=== PATIENT | female | born 1955 | race Two or more races ===

== ENCOUNTER 2024-08-15 09:54 | Inpatient (IN) | payer MEDICARE, OTHER ==
[~2024-08-15] VITALS: Ht 154.9 cm; Wt 90.7 kg
[2024-08-15] MEDS ORDERED: METOCLOPRAMIDE HCL 10 MG/2 ML VIAL ONE ×2 (11:06→11:30)
[2024-08-15] MEDS ORDERED: diphenhydrAMINE HCL 50 MG/ML VIAL ONE ×2 (11:06→11:30)
[2024-08-15] MEDS ORDERED: ACETAMINOPHEN 325 MG TABLET ONE ×2 (11:06→11:31)
[2024-08-15] MEDS: ACETAMINOPHEN 325 MG TABLET PO ONE (11:40)
[2024-08-15] MEDS: diphenhydrAMINE HCL 50 MG/ML VIAL IV ONE (11:45)
[2024-08-15] MEDS: METOCLOPRAMIDE HCL 10 MG/2 ML VIAL IV ONE (11:48)
[2024-08-15 12:06] LABS: CALCIUM, SERUM 8.3 mg/dL (8.5-10.1); CREATININE 1.8 mg/dL (0.6-1.3); POTASSIUM 4.1 mmol/L (3.5-5.1)
[2024-08-15 12:09] LABS: INR 0.96 (0.91-1.10); PARTIAL THROMBOPLASTIN TIME 26.1 SEC (24.3-34.3); PROTHROMBIN TIME 10.2 SECS (9.2-11.1)
[2024-08-15 12:12] LABS: ALBUMIN 3.1 g/dL (3.4-5.0); BILIRUBIN,DIRECT 0.1 mg/dL (0.0-0.2); BILIRUBIN,TOTAL 0.2 mg/dL (0.2-1.0); TOTAL PROTEIN, SERUM 7.2 g/dL (6.4-8.2)
[2024-08-15 12:20] LABS: BASOPHILS # (AUTO) 0.1 K/uL (0.0-0.2); BASOPHILS % (AUTO) 0.3 % (0.0-2.0); EOSINOPHILS % (AUTO) 0.2 % (0.0-6.0); HEMATOCRIT 34 % (33-45); HEMOGLOBIN 10.9 g/dL (11.5-14.8); LYMPHOCYTES # (AUTO) 0.9 K/uL (0.8-4.8); LYMPHOCYTES % (AUTO) 4.5 % (20.0-44.0); MEAN CORPUSCULAR HEMOGLOBIN 25 PG (26.0-33.0); MEAN CORPUSCULAR HGB CONC 32 g/dl (31.0-36.0); MEAN CORPUSCULAR VOLUME 78 fL (82-100); MONOCYTES # (AUTO) 0.9 K/uL (0.1-1.30); MONOCYTES % (AUTO) 4.7 % (2.0-12.0); NEUTROPHILS # (AUTO) 17.2 K/uL (1.8-8.9); NEUTROPHILS % (AUTO) 90.3 % (43.0-81.0); PLATELET COUNT (AUTO) 370 K/uL (150-450); RED BLOOD CELL COUNT(AUTO) 4.34 MIL/uL (4.0-5.2); RED CELL DISTRIBUTION WIDTH 16.8 % (11.5-15.0); WHITE BLOOD COUNT (AUTO) 19.1 K/uL (4.3-11.0)
[2024-08-15 12:29] LABS: LACTIC ACID 3.3 mmol/L (0.4-2.0)
[2024-08-15] MEDS: IV NS 0.9% 1,000 ML BAG IV ONE (13:05)
[2024-08-15 13:57] LABS: APPEARANCE,URINE CLEAR (CLEAR); BILIRUBIN,URINE NEGATIVE (NEGATIVE); BLOOD, URINE NEGATIVE Ery/uL (NEGATIVE); COLOR,URINE YELLOW (YELLOW); KETONES,URINE NEGATIVE (NEGATIVE); LEUKOCYTE ESTERASE ,URINE NEGATIVE (NEGATIVE); NITRITE, URINE NEGATIVE (NEGATIVE); PROTEIN,URINE NEGATIVE (NEGATIVE); UGLUCOSE 3+ mg/dL (NEGATIVE); UROBILINOGEN,URINE 0.2 EU/dL (0.2)
[2024-08-15] MEDS: CEFTRIAXONE 2 G in IV D5W 50 ML IV ONE (14:00)
[2024-08-15 14:04] LABS: ADD URINE CULTURE NO; BACTERIA,URINE Few /HPF (None Seen); RBC,URINE 0-2 /HPF (0-2); SQUAMOUS EPITHELIAL CELL,UR Moderate /HPF (None Seen); WBC,URINE 0-2 /HPF (0-3)
[2024-08-15] MEDS ORDERED: PANT40TA49 PO (14:16)
[2024-08-15] MEDS ORDERED: METF-442 PO (14:16)
[2024-08-15] MEDS ORDERED: ASPI-1420 PO (14:16)
[2024-08-15] MEDS ORDERED: LOSA100T31 PO (14:16)
[2024-08-15] MEDS ORDERED: LINA5TAB PO (14:16)
[2024-08-15] MEDS ORDERED: DAPA10TA PO (14:16)
[2024-08-15] MEDS ORDERED: METO-358 PO (14:16)
[2024-08-15] MEDS ORDERED: FURO20TA4 PO (14:16)
[2024-08-15] MEDS ORDERED: LEVO137T2 PO (14:16)
[2024-08-15] MEDS ORDERED: HYDR100T27 PO (14:16)
[2024-08-15] MEDS ORDERED: IBUP-1957 PO (14:16)
[2024-08-15] MEDS ORDERED: MONT10TA22 PO (14:16)
[2024-08-15] MEDS ORDERED: GABA300C PO (14:16)
[2024-08-15] MEDS: AZITHROMYCIN 500 MG in IV D5W 250 ML IV ONE (15:30)
[2024-08-15 16:00] VITALS: BP_SYST 103; BP_SYST 135; BP_DIAS 49; BP_DIAS 67; TEMP 98.2; TEMP 98.8; O2SAT 95; O2SAT 99
[2024-08-15 16:08] VITALS: BP 103/49; TEMP 98.8; O2SAT 95
[2024-08-15] MEDS: IV NS 0.9% 1,000 ML BAG IV PRN (17:07)
[2024-08-15] MEDS ORDERED: IV NS 0.9% 1,000 ML IV PRN (18:00)
[2024-08-15] MEDS ORDERED: ONDANSETRON HCL/PF 4 MG/2 ML VIAL IVP PRN (18:00)
[2024-08-15] MEDS ORDERED: DEXTROSE 50%-WATER 50 ML DISP.SYRIN IV PRN (18:30)
[2024-08-15] MEDS ORDERED: *INSULIN REGULAR(HUMULIN R)HUM 100 UNIT/ML VIAL SQ PRN (18:30)
[2024-08-15] MEDS: METOPROLOL SUCCINATE 50 MG TAB.SR.24H PO SCH (18:30)
[2024-08-15] MEDS: hydrALAZINE HCL 50 MG TABLET PO SCH (18:30)
[2024-08-15] MEDS: GABAPENTIN 300 MG CAPSULE PO SCH (18:51)
[2024-08-15] MEDS: PANTOPRAZOLE 40 MG TABLET.DR PO SCH (18:51)
[2024-08-15 20:00] VITALS: BP 102/64; TEMP 98.4; O2SAT 99
[2024-08-15] MEDS: HEPARIN SODIUM, PORCINE 5000 UNITS/1 ML VIAL SQ SCH (20:13)
[2024-08-15] MEDS: ACETAMINOPHEN 325 MG TABLET PO PRN (20:27)
[2024-08-15 20:38] VITALS: BP 102/64; TEMP 98.4; O2SAT 99
[2024-08-15] MEDS: INSULIN REGULAR, HUMAN 100 UNIT/ML 3 ML VIAL SQ PRN (21:05)
[2024-08-15] MEDS: BLOOD SUGAR DIAGNOSTIC 1 EACH STRIP VI SCH (21:06)
[2024-08-15] MEDS: MONTELUKAST SODIUM (10MG) 10 MG TABLET PO SCH (23:11)
[2024-08-16] VITALS (7 sets, daily range): BP systolic 89–140; BP diastolic 38–65; TEMP 98.2–98.4; O2SAT 92–100
[2024-08-16 06:20] LABS: BASOPHILS % (AUTO) 0.3 % (0.0-2.0); EOSINOPHILS # (AUTO) 0.2 K/uL (0.0-0.7); EOSINOPHILS % (AUTO) 1.4 % (0.0-6.0); HEMATOCRIT 27 % (33-45); HEMOGLOBIN 8.8 g/dL (11.5-14.8); LYMPHOCYTES # (AUTO) 1.8 K/uL (0.8-4.8); LYMPHOCYTES % (AUTO) 15.1 % (20.0-44.0); MEAN CORPUSCULAR HEMOGLOBIN 25 PG (26.0-33.0); MEAN CORPUSCULAR HGB CONC 33 g/dl (31.0-36.0); MEAN CORPUSCULAR VOLUME 77 fL (82-100); MONOCYTES # (AUTO) 0.7 K/uL (0.1-1.30); MONOCYTES % (AUTO) 5.9 % (2.0-12.0); NEUTROPHILS # (AUTO) 9.1 K/uL (1.8-8.9); NEUTROPHILS % (AUTO) 77.3 % (43.0-81.0); PLATELET COUNT (AUTO) 292 K/uL (150-450); RED BLOOD CELL COUNT(AUTO) 3.48 MIL/uL (4.0-5.2); RED CELL DISTRIBUTION WIDTH 16.7 % (11.5-15.0); WHITE BLOOD COUNT (AUTO) 11.8 K/uL (4.3-11.0)
[2024-08-16 06:48] LABS: CALCIUM, SERUM 7.7 mg/dL (8.5-10.1); CREATININE 1.4 mg/dL (0.6-1.3); MAGNESIUM 2.1 mg/dL (1.8-2.4); PHOSPHORUS 3.5 mg/dL (2.5-4.9)
[2024-08-16 07:04] LABS: POTASSIUM 3.4 mmol/L (3.5-5.1)
[2024-08-16] MEDS: LEVOTHYROXINE SODIUM 137 MCG TABLET PO SCH (08:34)
[2024-08-16] MEDS: DAPAGLIFLOZIN PROPANEDIOL 5 MG TABLET PO SCH (08:34)
[2024-08-16] MEDS: LINAGLIPTIN 5 MG TABLET PO SCH (08:34)
[2024-08-16] MEDS: ASPIRIN EC 81 MG TABLET.DR PO SCH (08:34)
[2024-08-16] MEDS: LOSARTAN POTASSIUM 50 MG TABLET PO SCH (08:38)
[2024-08-16] MEDS: CEFTRIAXONE 1 G in IV D5W 50 ML IV SCH (11:36)
[2024-08-16] MEDS: POTASSIUM CHLORIDE 20 MEQ TAB.PRT.SR PO SCH (11:36)
[2024-08-16] MEDS: AZITHROMYCIN 500 MG in IV D5W 250 ML IV SCH (15:28)
[2024-08-16 22:59] LABS: CREATININE, URINE 33.9 MG/DL (30.0-125.0); URINE TOTAL PROTEIN 11.3 mg/dL (0-11.9)
[2024-08-17] VITALS: BP 133/77; TEMP 98.6; O2SAT 96
[2024-08-17 04:00] VITALS: BP 136/51; TEMP 98.5; O2SAT 96
[2024-08-17 04:16] VITALS: BP 111/48; TEMP 98.4; O2SAT 95
[2024-08-17 04:17] VITALS: BP 136/51; TEMP 98.5; O2SAT 96
[2024-08-17 07:00] VITALS: BP 108/46; TEMP 97.9; O2SAT 97
[2024-08-17 07:01] LABS: BASOPHILS % (AUTO) 0.4 % (0.0-2.0); EOSINOPHILS # (AUTO) 0.2 K/uL (0.0-0.7); EOSINOPHILS % (AUTO) 2.4 % (0.0-6.0); HEMATOCRIT 29 % (33-45); HEMOGLOBIN 9.7 g/dL (11.5-14.8); LYMPHOCYTES # (AUTO) 1.5 K/uL (0.8-4.8); LYMPHOCYTES % (AUTO) 14.4 % (20.0-44.0); MEAN CORPUSCULAR HEMOGLOBIN 26 PG (26.0-33.0); MEAN CORPUSCULAR HGB CONC 33 g/dl (31.0-36.0); MEAN CORPUSCULAR VOLUME 78 fL (82-100); MONOCYTES # (AUTO) 0.7 K/uL (0.1-1.30); MONOCYTES % (AUTO) 6.4 % (2.0-12.0); NEUTROPHILS % (AUTO) 76.4 % (43.0-81.0); PLATELET COUNT (AUTO) 317 K/uL (150-450); RED BLOOD CELL COUNT(AUTO) 3.76 MIL/uL (4.0-5.2); RED CELL DISTRIBUTION WIDTH 17.2 % (11.5-15.0); WHITE BLOOD COUNT (AUTO) 10.4 K/uL (4.3-11.0)
[2024-08-17 07:24] LABS: ALBUMIN 2.4 g/dL (3.4-5.0); BILIRUBIN,TOTAL 0.2 mg/dL (0.2-1.0); CALCIUM, SERUM 7.9 mg/dL (8.5-10.1); CREATININE 1.1 mg/dL (0.6-1.3); MAGNESIUM 2.5 mg/dL (1.8-2.4); PHOSPHORUS 2.8 mg/dL (2.5-4.9); TOTAL PROTEIN, SERUM 6.4 g/dL (6.4-8.2)
[2024-08-17] MEDS ORDERED: LEVO500T90 PO (10:00)
[2024-08-17 12:53] VITALS: BP 122/54
[2024-08-18 08:08] LABS: PTH, INTACT 38 pg/mL (15-65)
[2024-08-19 05:10] LABS: *SPE A/G RATIO 0.8 (0.7-1.7); *SPE ALBUMIN 2.6 g/dL (2.9-4.4); *SPE ALPHA-1-GLOBULIN 0.3 g/dL (0.0-0.4); *SPE ALPHA-2-GLOBULIN 0.9 g/dL (0.4-1.0); *SPE BETA GLOBULIN 1.1 g/dL (0.7-1.3); *SPE GLOBULIN, TOTAL 3.3 g/dL (2.2-3.9); *SPE M-SPIKE Not Observed g/dL (Not Observed); *SPE PROTEIN TOTAL 5.9 g/dL (6.0-8.5)
== END 2024-08-17 13:35 | disposition home or self-care (01) | DRG 871 ==
LOC: ER 10:00 → TELE 14:22
PROVIDERS: ADMIT Nurse Practitioner Acute Care; ATTEND Nurse Practitioner Acute Care
DX: A41.9 Sepsis, unspecified organism (principal); J15.9 Unspecified bacterial pneumonia; D68.59 Other primary thrombophilia; E44.0 Moderate protein-calorie malnutrition; N17.9 Acute kidney failure, unspecified; E87.20 Acidosis, unspecified; E88.09 Other disorders of plasma-protein metabolism, not elsewhere classified; M79.7 Fibromyalgia; E11.9 Type 2 diabetes mellitus without complications; Z79.4 Long term (current) use of insulin; E78.5 Hyperlipidemia, unspecified; J45.909 Unspecified asthma, uncomplicated; Z99.81 Dependence on supplemental oxygen; Z86.73 Personal history of transient ischemic attack (TIA), and cerebral infarction without residual deficits; Z79.84 Long term (current) use of oral hypoglycemic drugs; Z79.890 Hormone replacement therapy; Z79.82 Long term (current) use of aspirin; Z79.899 Other long term (current) drug therapy; E66.01 Morbid (severe) obesity due to excess calories; M89.8X9 Other specified disorders of bone, unspecified site; I87.2 Venous insufficiency (chronic) (peripheral); I50.9 Heart failure, unspecified; E87.6 Hypokalemia; D64.9 Anemia, unspecified
CPT/HCPCS: 36415; 70450-TC; 71045-TC; 76770-TC; 80048-TC; 80053-TC; 80076-TC; 81001; 82550-TC; 82570-TC; 82962-TC; 83605-TC; 83690-TC; 83735-TC; 83970; 84100-TC; 84155; 84165; 84300-TC; 85025-TC; 85730-TC; 87040-TC; 87086-TC; 93971-TC; G0378; J0456; J0696; J1200; J1644; J1815; J2765; J7030; J7060

== ENCOUNTER 2024-10-30 13:26 | Emergency (ER) | payer MEDICARE, OTHER ==
[~2024-10-30] VITALS: Ht 157.5 cm; Wt 96.2 kg
[~2024-10-30 13:26] MED LIST: ASPI-1420 PO; DAPA10TA PO; FURO20TA4 PO; GABA300C PO; HYDR100T27 PO; IBUP-1957 PO; LEVO137T2 PO; LEVO500T90 PO; LINA5TAB PO; LOSA100T31 PO; METF-442 PO; METO-358 PO; MONT10TA22 PO; PANT40TA49 PO
[2024-10-30] MEDS ORDERED: CARBAMAZEPINE 200 MG TABLET ONE (15:14)
[2024-10-30] MEDS ORDERED: CARB100C9 PO (15:16)
[2024-10-30] MEDS: CARBAMAZEPINE 200 MG TABLET PO ONE (15:19)
[2024-10-30 15:56] VITALS: BP 140/60; TEMP 97.9; O2SAT 96
== END 2024-10-30 15:57 | disposition home or self-care (01) ==
LOC: ER 13:37
DX: G50.0 Trigeminal neuralgia (principal); E11.9 Type 2 diabetes mellitus without complications; I10 Essential (primary) hypertension; Z79.4 Long term (current) use of insulin; Z79.82 Long term (current) use of aspirin; Z79.84 Long term (current) use of oral hypoglycemic drugs; Z79.899 Other long term (current) drug therapy; Z86.73 Personal history of transient ischemic attack (TIA), and cerebral infarction without residual deficits